=== PATIENT | female | born 1945 | race Caucasian/White ===

== ENCOUNTER 2019-04-07 19:02 | Emergency (ER) | payer MEDICARE, OTHER ==
[~2019-04-07] VITALS: Ht 154.9 cm; Wt 54.8 kg
[~2019-04-07 19:02] MED LIST: BENA10TA4 PO; CYCL10TA7 PO; IBUP-1542 PO
[2019-04-07 19:08] VITALS: Ht 154.9 cm; Wt 54.8 kg
[2019-04-07] MEDS ORDERED: IBUPROFEN 600 MG TAB PO ONE (21:00)
[2019-04-07] MEDS ORDERED: CYCLOBENZAPRINE 10 MG TAB PO ONE (21:00)
[2019-04-07 21:11] VITALS: BP 141/82; PULSE 79; RESP 18
== END 2019-04-07 21:11 | disposition home or self-care (01) ==
LOC: FTE 19:02
DX: M54.42 Lumbago with sciatica, left side (principal); M54.41 Lumbago with sciatica, right side; Z76.0 Encounter for issue of repeat prescription
CPT/HCPCS: 99283